=== PATIENT | female | born 1990 | race Caucasian/White ===

== ENCOUNTER 2017-08-24 10:59 | Emergency (ER) | payer OTHER ==
[~2017-08-24] VITALS: Ht 162.6 cm; Wt 83.2 kg
[~2017-08-24 10:59] MED LIST: LEXAPRO10 MG PO; NAPROSYN500 MG PO; PROVENTIL17 GM IH; ULTRACET1 TABLET PO; ULTRAM50 MG PO; VALIUM5 MG PO; ZANTAC150 MG PO
[2017-08-24 11:44] LABS: HEMATOCRIT 40.6 % (36.0-46.0); HEMOGLOBIN 13.4 G/DL (11.9-15.5); MCH 27.9 PG (29.0-34.0); MCV 84.6 FL (83-99); PLATELET COUNT 291 K/uL (156-360); RBC DIS.WIDTH-CV 12.4 % (11.8-14.6); RBC DIS.WIDTH-SD 38.5 % (39-53); WHITE BLOOD COUNT 5.8 K/uL (4.1-10.2)
[2017-08-24 11:52] LABS: CHLORIDE 108 mEq/L (99-109); SODIUM 141 mEq/L (136-147)
[2017-08-24 11:53] LABS: GLUCOSE 79 mg/dL (70-99)
[2017-08-24 11:57] LABS: CREATININE 0.9 mg/dL (0.6-1.3); GFR ESTIMATE (CALCULATED) > 59 mL/min/
[2017-08-24 11:58] LABS: UREA NITROGEN (BUN) 10 mg/dL (9-23)
[2017-08-24 12:05] LABS: QUANTITATIVE HCG < 4.0 MIU/ML
[2017-08-24] MEDS ORDERED: FLEXERIL10 MG PO (13:50)
[2017-08-24] MEDS ORDERED: MOTRIN800 MG PO (13:50)
[2017-08-24 14:30] VITALS: BP 104/75
== END 2017-08-24 14:32 | disposition home or self-care (01) ==
LOC: EME 10:59
PROVIDERS: Emergency Medicine
DX: S13.9XXA Sprain of joints and ligaments of unspecified parts of neck, initial encounter (principal); S30.0XXA Contusion of lower back and pelvis, initial encounter; R10.9 Unspecified abdominal pain; V49.40XA Driver injured in collision with unspecified motor vehicles in traffic accident, initial encounter; Y92.410 Unspecified street and highway as the place of occurrence of the external cause; F41.9 Anxiety disorder, unspecified
CPT/HCPCS: 70450; 71045; 72125; 74177; 80048; 84702; 85027; 99281; 99285; J7030